=== PATIENT | male | born 1995 | race Caucasian/White ===

== ENCOUNTER 2017-04-27 08:43 | Emergency (ER) | payer OTHER ==
[~2017-04-27] VITALS: Wt 86.4 kg
[2017-04-27 10:31] LABS: ADD UMIC NO; UR ASCORBIC ACID NEGATIVE (NEGATIVE); UR BILIRUBIN (Dip) NEGATIVE (NEGATIVE); UR BLOOD (Dip) NEGATIVE (NEGATIVE); UR CLARITY CLEAR (CLEAR); UR COLOR YELLOW (YELLOW); UR GLUCOSE (Dip) NEGATIVE (NEGATIVE); UR KETONES (Dip) NEGATIVE (NEGATIVE); UR LEUKOCYTE ESTERASE (Dip) NEGATIVE Leu/ul (NEGATIVE); UR NITRITE (Dip) NEGATIVE (NEGATIVE); UR SPECIFIC GRAVITY (Dip) 1.006 (1.003-1.030); UR TOTAL PROTEIN (Dip) NEGATIVE (NEGATIVE); UR UROBILINOGEN (Dip) 1+ mg/dL (NEGATIVE)
--- NOTE | 2017-04-27 13:49 | ERD ---
ER Documentation Chief Complaint Date/Time DATE: 04/27/17 TIME: 13:47 Chief Complaint urinary retention x1.5 days HPI 21-year-old man with a history of polysubstance drug abuse presents with urinary retention, he states he has had similar but less intense episodes in the past. Patient denies flank pain, no hematuria, no penile discharge, no trauma, no complaints of chest pain or shortness of breath. ROS All systems reviewed and are negative except as per history of present illness. PMhx/Soc Drug abuse including cocaine, methamphetamines, marijuana, heroin History of Surgery: No Hx Miscellaneous Medical Probl: Yes (abd trauma) Hx Alcohol Use: Yes Hx Substance Use: Yes Hx Tobacco Use: Yes Smoking Status: Current every day smoker FmHx Family History: No diabetes Physical Exam Vitals Vital Signs Date Time Temp Pulse Resp B/P Pulse Ox O2 Delivery O2 Flow Rate FiO2 04/27/17 08:46 98.0 82 20 135/88 99 Physical Exam GENERAL: Well-developed, well-nourished, appears intoxicated HEENT: Moist mucous membranes, pink conjunctiva, no cervical spine tenderness or step-off deformities, no goiter, no jaundice or icterus, extraocular movements intact without pain. No submandibular induration, and no pharyngeal erythema NEURO: Alert and oriented 3, cranial nerves II through XII intact bilaterally, pupils equal round reactive to light, no focal deficits or facial asymmetry, sensation intact distally Strength 5/5 in upper and lower extremities bilaterally CARDIAC: Regular rate and rhythm, no murmurs rubs or gallops LUNGS: Clear bilaterally no wheezing crackles or stridor ABDOMEN: Soft nontender, no guarding, no rigidity, no rebound, no psoas sign no obturator sign. Normoactive bowel sounds SKIN: Warm and dry to touch, no abrasions, contusions, or hematomas, no lacerations, no ecchymosis, no target lesions, and without ulcers EXTREMITIES: No clubbing cyanosis or edema, calves are bilaterally symmetrical, no Homans sign, no popliteal cord sign. Distal pulses equal and bilateral PSYCH: Normal affect without agitation or irritability Results 24 hrs Laboratory Tests Test 04/27/17 09:30 Urine Color YELLOW Urine Clarity CLEAR Urine pH 7.0 Urine Specific Brantley 1.006 Urine Ketones NEGATIVEmg/dL Urine Nitrite NEGATIVEmg/dL Urine Bilirubin NEGATIVEmg/dL Urine Urobilinogen 1+mg/dL Urine Leukocyte Esterase NEGATIVELeu/ul Urine Hemoglobin NEGATIVEmg/dL Urine Glucose NEGATIVEmg/dL Urine Total Protein NEGATIVEmg/dl Procedures/MDM Straight catheterization of the bladder was performed, bladder was emptied, patient felt much better. Urine analysis appears negative for infection, cultures are pending I will follow-up. Patient feels much better at this time, and vital signs are normal, symptoms have improved. I did give strict instructions to return to the ED if symptoms continue or worsen, patient will otherwise follow-up with primary care physician. Patient understood instructions and agreed to plan. Disclaimer: Inadvertent spelling and grammatical errors are likely due to EHR/ dictation software use and do not reflect on the overall quality of patient care. Also, please note that the electronic time recorded on this note does not necessarily reflect the actual time of the patient encounter. Departure Diagnosis: Primary Impression: Retention of urine Additional Impression: Drug abuse Condition: Good Patient Instructions: Urinary Retention, Male JORDANA HEARD MD Apr 27, 2017 13:49
== END 2017-04-27 09:57 | disposition left against medical advice (07) ==
LOC: E/R 08:43
DX: R33.9 Retention of urine, unspecified (principal); F19.10 Other psychoactive substance abuse, uncomplicated; F17.210 Nicotine dependence, cigarettes, uncomplicated
CPT/HCPCS: 81003; 87086; 99283; P9612